=== PATIENT | male | born 1970 ===

== ENCOUNTER 2022-03-31 05:45 | Day surgery (SDC) | payer OTHER ==
[~2022-03-31] VITALS: Ht 180.3 cm; Wt 98.4 kg
[~2022-03-31 05:45] MED LIST: METFORM PO; WELLBUTRIN PO
== END 2022-03-31 17:00 | disposition home or self-care (01) ==
LOC: CIR.AMB 05:45
PROVIDERS: ATTEND Orthopaedic Surgery Hand Surgery
DX: S63.502A Unspecified sprain of left wrist, initial encounter (principal); X58.XXXA Exposure to other specified factors, initial encounter; Y93.9 Activity, unspecified; Y92.9 Unspecified place or not applicable; E78.00 Pure hypercholesterolemia, unspecified; R73.03 Prediabetes; Z86.16 Personal history of COVID-19; Z20.822 Contact with and (suspected) exposure to COVID-19

== ENCOUNTER 2022-03-31 06:45 | Outpatient (CLI) | payer OTHER | END 2022-03-31 07:06 | disposition home or self-care (01) | LOC: LAB 06:45 | PROVIDERS: ATTEND Orthopaedic Surgery Hand Surgery | DX: Z20.822 Contact with and (suspected) exposure to COVID-19 (principal) ==